=== PATIENT | female | born 1955 | race Caucasian/White ===

== ENCOUNTER 2019-11-08 12:17 | Emergency (ER) | payer SELFPAY ==
--- NOTE | 2019-11-08 12:37 | ER Document Report ---
ED General - General Stated Complaint: POSSIBLE STROKE Time Seen by Provider: 11/08/19 12:33 Mode of Arrival: Medic Information source: Patient, Emergency Med Personnel - EMS Marv and Sabra Notes: 64-year-old female arrives by EMS as having 8 out of 10 joint pain and headache pain. Patient says she usually lives at a 5 out of 10. For 4 days she has been complaining of dizziness and headache and awoke this morning with left facial droop and says she has a flapping left foot gait. 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 Patient has a mcwilliams skin of her face and upper body but non- tanned on her legs. Patient reports she has been doing a lot of gardening. Patient reports she had a stroke 4 years ago. She is positive for hepatitis B and C as well as anterior approach neck fusion COPD and seizures. I met the patient at the back door upon patient arrival and she has bilaterally good range of motion and sensation and is understandable speech despite left facial droop. 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 Chris radiologist called at [address] was within normal limits. Patient reports she has many allergies and says she cannot take fentanyl but can take Percocet and Klonopin TRAVEL OUTSIDE OF THE [place] IN LAST 30 DAYS: No - HPI Onset: Yesterday - Related Data Allergies/Adverse Reactions: bupropion [From Wellbutrin] Allergy (Verified 11/08/19 13:29) carbamazepine [From Tegretol] Allergy (Verified 11/08/19 13:29) divalproex sodium [From Depakote] Allergy (Verified 11/08/19 13:29) fentanyl Allergy (Verified 11/08/19 13:29) ketamine Allergy (Verified 11/08/19 13:29) ketorolac [From Toradol] Allergy (Verified 11/08/19 13:29) lithium Allergy (Verified 11/08/19 13:29) melatonin Allergy (Verified 11/08/19 13:29) quetiapine [From Seroquel] Allergy (Verified 11/08/19 13:29) Sulfa (Sulfonamide Antibiotics) Allergy (Verified 11/08/19 13:29) varenicline [From Chantix] Allergy (Verified 11/08/19 13:29) lurasidone [From Latuda] Adverse Reaction (Verified 11/08/19 13:29) Past Medical History - General Information source: Patient, Emergency Med Personnel - Social History Smoking Status: Current Every Day Smoker Cigarette use (# per day): Yes Chew tobacco use (# tins/day): No Smoking Education Provided: Yes Frequency of alcohol use: None Drug Abuse: None Lives with: Family Family History: Reviewed & Not Pertinent, Arthritis, COPD, Other - Hepatitis B and C Patient has suicidal ideation: No Patient has homicidal ideation: No Review of Systems - Review of Systems Constitutional: See HPI, Other - Left facial droop EENT: See HPI, Other - Left facial droop Cardiovascular: No symptoms reported Respiratory: No symptoms reported Gastrointestinal: No symptoms reported Genitourinary: No symptoms reported Female Genitourinary: No symptoms reported Musculoskeletal: See HPI, Other - Left foot drop Skin: No symptoms reported Hematologic/Lymphatic: No symptoms reported Neurological/Psychological: No symptoms reported Physical Exam - Vital signs Interpretation: Normal - General General appearance: Alert, Other - Obvious left facial droop - HEENT Head: Normocephalic Eyes: Normal Conjunctiva: Normal Cornea: Normal - Back Extraocular movements intact: Yes Eyelashes: Normal Pupils: PERRL Ears: Normal Sinus: Normal Nasal: Normal Mouth/Lips: Other - Left nasolabial fold lips droop Mucous membranes: Normal Pharynx: Normal - but understandable speech Neck: Normal - Respiratory Respiratory status: No respiratory distress Chest status: Nontender Breath sounds: Normal Chest palpation: Normal - Cardiovascular Rhythm: Regular Heart sounds: Normal auscultation Murmur: No Friction rub: No Kaylyn's crunch: No - Abdominal Inspection: Normal Distension: No distension Bowel sounds: Normal Tenderness: Nontender Organomegaly: No organomegaly - Back Back: Normal - Extremities General upper extremity: Normal inspection General lower extremity: Normal inspection, Other - Except for history of left foot drop according to patient. 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 Sensory: Normal - Psychological Associated symptoms: Normal affect - Skin Skin Temperature: Warm Skin Moisture: Dry Course - Laboratory Result Diagrams: 11/08/19 12:46 11/08/19 12:46 Laboratory results interpreted by me: 11/08/19 11/08/19 12:46 12:46 Eos % (Auto) 8.9 H Absolute Eos (auto) 0.8 H Potassium 5.1 H Carbon Dioxide 32 H Anion Gap 3 L BUN 21 H Calcium 10.3 H AST 56 H ALT 48 H - Diagnostic Test Radiology reviewed: Reports reviewed - EKG Interpretation by Me EKG shows normal: Sinus rhythm Critical Care Note - Critical Care Note Total time excluding time spent on procedures (mins): 90 Comments: I discussed the patient's findings with the patient and she appeared to understand. [facility]. Discharge - Discharge Clinical Impression: Mohamud's palsy Condition: Good Disposition: HOME, SELF-CARE Additional Instructions: Follow-up with medical doctor and with neurologist this week return to ER as needed for true emergencies take medicines as directed encourage fluids Prescriptions: Dexamethasone [Decadron 4 Mg Tablet] 4 mg PO DAILY #4 tablet Cephalexin Monohydrate [Keflex 500 mg Capsule] 500 mg PO TID 5 Days #21 capsule Oxycodone HCl/Acetaminophen [Percocet 5-325 mg Tablet] 1 tab PO TID #15 tablet Acyclovir [Zovirax 200 mg Capsule] 200 mg PO TID #21 capsule
--- NOTE | 2019-11-08 12:39 | RADIOLOGY REPORT (SQ) ---
EXAM DESCRIPTION: CT HEAD WITHOUT IMAGES COMPLETED DATE/TIME: 11/08/2019 12:28 pm REASON FOR STUDY: bed 9 stroke protocol COMPARISON: None. TECHNIQUE: Axial images acquired through the brain without intravenous contrast. Images reviewed wi th bone, brain and subdural windows. Additional sagittal and coronal reconstructions were generated. Images stored on PACS. All CT scanners at this facility use dose modulation, iterative reconstruction, and/or weight based d osing when appropriate to reduce radiation dose to as low as reasonably achievable (ALARA). [facility]: Dose Right [facility]: CareDose [facility]: Dose Right [facility]: Teradose 4D [facility]: Birst RADIATION DOSE: CT Rad equipment meets quality standard of care and radiation dose reduction techniq ues were employed. CTDIvol: 48.6 mGy. DLP: 905 mGy-cm. mGy. LIMITATIONS: None. FINDINGS: VENTRICLES: Normal size and contour. CEREBRUM: No masses. No hemorrhage. No midline shift. No evidence for acute infarction. Normal gra y/white matter differentiation. No areas of low density in the white matter. CEREBELLUM: No masses. No hemorrhage. No alteration of density. No evidence for acute infarction. EXTRAAXIAL SPACES: No fluid collections. No masses. ORBITS AND GLOBE: No intra- or extraconal masses. Normal contour of globe without masses. CALVARIUM: No fracture. PARANASAL SINUSES: No fluid or mucosal thickening. SOFT TISSUES: No mass or hematoma. OTHER: No other significant finding. IMPRESSION: NORMAL BRAIN CT WITHOUT CONTRAST. EVIDENCE OF ACUTE STROKE: NO. COMMENT: Pertinent positive or negative findings of the imaging study reported as a CRITICAL EXAM t christine Lock at12:33 on 11/08/2019. Category of Critical Exam: Stroke protocol. Quality ID # [id number]: Final reports with documentation of one or more dose reduction techniques (e.g., Au tomated exposure control, adjustment of the mA and/or kV according to patient size, use of iterative reconstruction technique) TECHNICAL DOCUMENTATION: JOB ID: [id number] 2010 [employer]- All Rights Reserved Reading location - IP/workstation name: [email or web address]
[2019-11-08] MEDS ORDERED: OXYCODONE-ACETAMINOPHEN 5-325 MG TABLET PO ONE (12:45)
[2019-11-08] MEDS ORDERED: CEPHALEXIN 500 MG CAPSULE PO ONE (12:46)
[2019-11-08] MEDS ORDERED: DEXAMETHASONE 4 MG TABLET PO ONE (12:47)
[2019-11-08 13:01] LABS: INTERNATIONAL RATION (INR) 1.02
[2019-11-08 13:02] LABS: PARTIAL THROMBOPLASTIN TIME 26.6 SEC (23.5-35.8)
[2019-11-08 13:04] LABS: PROTHROMBIN TIME 13.4 SEC (11.4-15.4)
[2019-11-08 13:10] LABS: ABSOLUTE BASOPHILS # (AUTO) 0.1 10^3/uL (0.0-0.2); ABSOLUTE EOSINOPHILS # (AUTO) 0.8 10^3/uL (0.0-0.6); ABSOLUTE LYMPHOCYTES (AUTO) 2.5 10^3/uL (0.5-4.7); ABSOLUTE MONOCYTES (AUTO) 0.6 10^3/uL (0.1-1.4); ABSOLUTE NEUT (AUTO) 5.3 10^3/uL (1.7-8.2); BASOPHILS % (AUTO) 0.8 % (0-2); EOSINOPHILS % (AUTO) 8.9 % (0-6); HEMATOCRIT 43.9 % (36.0-47.0); HEMOGLOBIN 15.5 g/dL (12.0-15.5); LYMPHOCYTES % (AUTO) 26.5 % (13-45); MEAN CORPUSCULAR HEMOGLOBIN 31.8 pg (27.0-33.4); MEAN CORPUSCULAR HGB CONC 35.4 g/dL (32.0-36.0); MEAN CORPUSCULAR VOLUME 90 fl (80-97); MONOCYTES % (AUTO) 6.4 % (3-13); PLATELET COUNT 265 10^3/uL (150-450); RED BLOOD COUNT 4.88 10^6/uL (3.72-5.28); RED CELL DISTRIBUTION WIDTH 12.6 % (11.5-14.0); SEGMENTED NEUTROPHILS % (AUTO) 57.4 % (42-78); TOTAL CELLS COUNTED % (AUTO) 100 %; WHITE BLOOD COUNT 9.3 10^3/uL (4.0-10.5)
--- NOTE | 2019-11-08 13:13 | RADIOLOGY REPORT (SQ) ---
EXAM DESCRIPTION: CHEST SINGLE VIEW IMAGES COMPLETED DATE/TIME: 11/08/2019 12:55 pm REASON FOR STUDY: bed 9 stroke protocol COMPARISON: None. EXAM PARAMETERS: NUMBER OF VIEWS: One view. TECHNIQUE: Single frontal radiographic view of the chest acquired. RADIATION DOSE: NA LIMITATIONS: None. FINDINGS: LUNGS AND PLEURA: No opacities, masses or pneumothorax. No pleural effusion. MEDIASTINUM AND HILAR STRUCTURES: No masses. Contour normal. HEART AND VASCULAR STRUCTURES: Heart normal in size. Normal vasculature. BONES: No acute findings. HARDWARE: None in the chest. OTHER: No other significant finding. IMPRESSION: NO ACUTE RADIOGRAPHIC FINDING IN THE CHEST. TECHNICAL DOCUMENTATION: JOB ID: [id number] 2010 [employer]- All Rights Reserved Reading location - IP/workstation name: [email or web address]
[2019-11-08 13:26] LABS: ALBUMIN 4.2 g/dL (3.5-5.0); ALKALINE PHOSPHATASE 119 U/L (38-126); ASPARTATE AMINO TRANSFERASE 56 U/L (14-36); BILIRUBIN,TOTAL 0.5 mg/dL (0.2-1.3); BLOOD UREA NITROGEN 21 mg/dL (7-20); CALCIUM 10.3 mg/dL (8.4-10.2); CHLORIDE 103 mmol/L (98-107); CREATINE KINASE 96 U/L (30-135); GLUCOSE 107 mg/dL (75-110); POTASSIUM 5.1 mmol/L (3.6-5.0); TOTAL PROTEIN 7.4 g/dL (6.3-8.2)
[2019-11-08 13:31] LABS: CARBON DIOXIDE 32 mmol/L (22-30)
[2019-11-08 13:33] LABS: ANION GAP 3 (5-19)
[2019-11-08 13:39] LABS: TROPONIN I < 0.012 ng/mL
[2019-11-08 15:20] VITALS: BP 127/87
--- NOTE | 2019-11-08 21:58 | EKG REPORT ---
SEVERITY:- NORMAL ECG - SINUS RHYTHM : Confirmed by: Diana Peck MD 08-Nov-2019 21:56:33
== END 2019-11-08 15:33 | disposition home or self-care (01) ==
LOC: ER 12:17
DX: G51.0 Bell's palsy (principal); R42 Dizziness and giddiness; R51 Headache; M21.372 Foot drop, left foot; J44.9 Chronic obstructive pulmonary disease, unspecified; F17.210 Nicotine dependence, cigarettes, uncomplicated; Z86.73 Personal history of transient ischemic attack (TIA), and cerebral infarction without residual deficits; Z88.8 Allergy status to other drugs, medicaments and biological substances; Z88.6 Allergy status to analgesic agent; Z88.5 Allergy status to narcotic agent; Z88.4 Allergy status to anesthetic agent; Z88.2 Allergy status to sulfonamides
CPT/HCPCS: 93005; 99291; 99292; 36415; 82553; 82550; 85025; 85610; 85730; 86592; 80053; 84484; 71045; 70450; 93010; J8540